=== PATIENT | female | born 1935 | race Caucasian/White ===

== ENCOUNTER → 2023-09-13 | Outpatient (CLI) | payer MEDICARE ==
[2023-09-13 20:30] LABS: Blood Urea Nitrogen 20.7 mg/dL (9.0-27.0); Carbon Dioxide 25.7 mmol/L (21.6-31.8); Chloride 101 mmol/L (96-109); Potassium 4.1 mmol/L (3.5-5.5); Sodium 140 mmol/L (135-145)
[2023-09-13 22:27] LABS: HCT 39.3 % (37.2-46.3); MCH 26.8 pg (27.0-32.0); MCHC 30.5 d/dL (32.0-37.0); MCV 87.7 FL (80.0-97.0); Mean Platelet Volume 11.2 FL (9.5-12.2); NRBC Per 100 WBC 0 X 10*3/uL (0.00-0.01); Platelet Count 295 X 10*3/uL (140-440); RBC 4.48 X 10*6/uL (4.10-5.20); RDW 15.9 % (11.5-14.5); WBC 9.63 X 10*3/uL (4.50-10.00)
== END | disposition home or self-care (01) ==
LOC: LABPAT 16:05
PROVIDERS: ATTEND Internal Medicine Interventional Cardiology
DX: Z01.812 Encounter for preprocedural laboratory examination (principal); I35.1 Nonrheumatic aortic (valve) insufficiency
CPT/HCPCS: 36415; 80051; 82565; 84520; 85027

== ENCOUNTER 2023-09-14 10:04 | Day surgery (SDC) | payer MEDICARE ==
[~2023-09-14 10:04] MED LIST: ALPRAZolam 0.25 MG TAB PO PRN; ALPRAZolam 0.5 MG TAB PO PRN; ASPIRIN 325 MG TAB PO STA; HEPARIN SODIUM,PORCINE (1 ML) 2,500 UNIT in SODIUM CHLORIDE 0.9% 250 ML IRRIGATION PRN; HEPARIN SODIUM,PORCINE 10,000 UNIT in SODIUM CHLORIDE 0.9% 1,000 ML IRRIGATION PRN; NITROGLYCERIN SL TABS 0.4 MG TAB SUBLINGUAL PRN; SODIUM CHLORIDE 0.9% 1,000 ML in EMPTY BAG 1 BAG IV SCH
[2023-09-14] MEDS ORDERED: SODIUM CHLORIDE 0.9% 1,000 ML IV ONE (10:13)
[2023-09-14 10:37] LABS: Basophils % (A) 0 %; Eosinophils # (A) 0.3 k/uL (0-0.7); Eosinophils % (A) 4 %; HCT 41.3 % (34.0-46.0); Hypochromasia Slight; Lymphocytes # (A) 2.2 k/uL (1.0-4.8); Lymphocytes % (A) 23 %; MCH 27.5 pg (25.0-35.0); MCHC 31.5 g/dL (31.0-37.0); MCV 87.4 fL (80.0-100.0); Mean Platelet Volume 8.4; Monocytes # (A) 0.5 k/uL (0-1.0); Monocytes % (A) 5 %; Neutrophils # (A) 6.2 k/uL (1.3-7.7); Neutrophils % (A) 66 %; Platelet Count 285 k/uL (150-450); RBC 4.73 m/uL (3.80-5.40); RDW 15.4 % (11.5-15.5); WBC 9.4 k/uL (3.8-10.6)
[2023-09-14 10:49] LABS: African American GFR (CKD) >90 (>60 ml/min/1.73 sqM); Anion Gap 13 mmol/L; Blood Urea Nitrogen 21 mg/dL (7-17); Calcium 9.2 mg/dL (8.4-10.2); Carbon Dioxide 24 mmol/L (22-30); Chloride 100 mmol/L (98-107); Glucose 105 mg/dL (74-99); Non-African American GFR(CKD) 88 (>60 ml/min/1.73 sqM); Sodium 137 mmol/L (137-145)
[2023-09-14 10:55] LABS: Potassium 4.5 mmol/L (3.5-5.1)
[2023-09-14] MEDS ORDERED: VERAPAMIL 2.5 MG/ML 2 ML AMP ONE (10:57)
[2023-09-14] MEDS ORDERED: fentaNYL (PF) 50 MCG/ML 2 ML AMP ONE (10:58)
[2023-09-14] MEDS ORDERED: HEPARIN SODIUM 1,000 UN/ML (10ML VL) ONE (10:58)
[2023-09-14] MEDS ORDERED: BENZOCAINE SPRAY 1 CAN TOPICAL ONE (11:00)
[2023-09-14] MEDS ORDERED: IV FLUID CONTINUATION 750 ML IV ONE (11:02)
[2023-09-14] MEDS ORDERED: MIDAZOLAM 2 MG/2 ML VIAL IVP ONE (11:05)
[2023-09-14] MEDS ORDERED: fentaNYL (PF) 50 MCG/ML 2 ML AMP IVP ONE (11:05)
--- NOTE | 2023-09-14 11:22 | P.PCN ---
Date of Procedure: 09/14/23 Operative Findings: TRANSESOPHAGEAL ECHOCARDIOGRAM TOOL ANALYST: NATHALIE MANRIQUEZ MD, RPVI INDICATION: Valvular heart disease SEDATION: Conscious sedation COMPLICATION: None LEVEL OF SEDATION Moderate with sedation length of 15 minutes PROCEDURE DESCRIPTION: After obtaining an informed consent, the patient was brought to transesophageal echocardiogram room. Pulse oximetry and heart monitors were attached to the patient. The patient throat was sprayed using lidocaine. The patient was turned into left lateral position. After that a bite guard was placed. After an appropriate conscious sedation was initiated, the transesophageal echocardiogram was advanced through a bite guard into the mid esophagus. A 2-D echocardiogram images, color Doppler images, continuous wave images, pulse-wave images, of various cardiac structure were performed. After that the transesophageal echocardiogram probe was advanced into the stomach and fixed to obtain transgastric view was. The probe was brought into the mid esophagus. Inter-atrial septum was interrogated using 2D images, color Doppler images, and then contrast study. After that transesophageal echocardiogram was withdrawn out and upon withdrawing the descending thoracic aorta all the way up to the arch was evaluated. FINDING: The left ventricular dimension and systolic function appeared to be within normal limits. The right ventricle appeared to be dilated. The left atrium is severely dilated. Left atrium appendage appeared to be intact. The aortic valve appears to be thickened and calcified was evidence of severe aortic stenosis with a peak systolic velocity of almost 4 m/s and peak gradient of 53 and mean gradient of 35 mmHg. There is severe aortic insufficiency was evidence of reversal flow in the descending aorta. There is moderate mitral regurgitation and the mitral valve leaflets are thickened and calcified. There is moderate tricuspid regurgitation seen as well. No evidence of pericardial effusion CONCLUSION: 1. Aortic sclerosis with evidence of severe aortic stenosis and severe aortic insufficiency. 2. Thickened mitral valve leaflets with moderate mitral regurgitation 3. Moderate tricuspid regurgitation 4. Normal LV systolic function 5.. Left atrial dilation 6. No evidence of pericardial effusion
[2023-09-14] MEDS ORDERED: LIDOCAINE 1% INJ 10MG/ML (5 ML VIAL-PF) SQ ONE (11:27)
[2023-09-14] MEDS: VERAPAMIL SYRINGE (5 MG/10 ML) INTRAARTER ONE ×2 (11:29→11:35)
[2023-09-14] MEDS ORDERED: HEPARIN SODIUM 1,000 UN/ML (10ML VL) IVP ONE (11:35)
[2023-09-14] MEDS ORDERED: NITROGLYCERIN SL TABS 0.4 MG TAB SUBLINGUAL ONE ×2 (11:44→11:45)
[2023-09-14] MEDS ORDERED: IOPAMIDOL-370 100ML BTL IVP ONE (11:54)
[2023-09-14] MEDS ORDERED: RX INFO: IV CONTRAST WAS GIVEN 1 EACH MISC MISCELLANE PRN (11:57)
[2023-09-14] MEDS ORDERED: SODIUM CHLORIDE 0.9% 1,000 ML IV SCH (12:00)
--- NOTE | 2023-09-14 12:05 | P.PCN ---
Date of Procedure: 09/14/23 Operative Findings: CARDIAC CATHETERIZATION PERFORMING PHYSICIAN: Jaciel Jones MD, RPVI PROCEDURE PERFORMED: 1. Selective right and left coronary angiogram 2. Ultrasound-guided access of the right radial artery INDICATION: Aortic valve disease with severe aortic stenosis and regurgitation COMPLICATION: None APPROACH: Right radial artery LEVEL OF SEDATION: Moderate with a sedation length of 40 minutes PROCEDURE DESCRIPTION: After obtaining an informed consent, the patient was brought to cardiac manager cath lab. Local anesthesia was performed using lidocaine subcutaneously. The right radial artery was cannulated using Seldinger technique, the guidewire passed easily, following that we advanced a 5-[place] sheath dilator assembly, the wire and dilator were removed and sheath was flushed. Following that, 2 mg of verapamil along with 4000 unit heparin were given. Selective right and left coronary angiogram using a 6-[place] JR4 and JL 3 catheters. Please note that the patient radial artery and right subclavian have extreme tortuosity and I have to use a long sheath. The procedure was completed there was no complication. SELECTIVE CORONARY ANGIOGRAM: The right coronary artery: Large caliber vessel and a dominant vessel and appeared to be angiographically normal. Left main: It is angiographically normal. Bifurcates into an LCx and LAD The left circumflex: Large caliber vessel nondominant vessel. The LCx is angiographically normal The left anterior descending artery: Large caliber vessel. The LAD has mild disease in the midportion by the bifurcation of a large diagonal branch CONCLUSION: 1. Mild disease involving the left anterior descending artery POSTPROCEDURE MANAGEMENT: Medical treatment for the CAD. The patient to be evaluated the valve clinic
[2023-09-14 15:45] VITALS: RESP 16
[2023-09-14 16:24] VITALS: BP 122/64; PULSE 84
== END 2023-09-14 16:32 | disposition home or self-care (01) ==
LOC: CATHCVL 10:04
PROVIDERS: ATTEND Internal Medicine Interventional Cardiology
DX: I08.1 Rheumatic disorders of both mitral and tricuspid valves (principal); I48.21 Permanent atrial fibrillation; I70.0 Atherosclerosis of aorta; I10 Essential (primary) hypertension; E78.5 Hyperlipidemia, unspecified; Z86.73 Personal history of transient ischemic attack (TIA), and cerebral infarction without residual deficits; Z79.899 Other long term (current) drug therapy
CPT/HCPCS: 93312; 93320; 93325; 93454; 76937; 80048; 85025; C1769 ×4; C1894 ×2; C1887; J2250; J2001; J3010; J1644; Q9967

== ENCOUNTER 2023-10-15 17:00 | Inpatient (IN) | payer MEDICARE ==
[2023-10-15] MEDS ORDERED: SODIUM CHLORIDE 0.9% 1,000 ML IV STA (17:29)
--- NOTE | 2023-10-15 17:37 | ED ---
Neuro HPI - General Chief Complaint: Neuro Symptoms/Deficit Stated Complaint: sob, confused, slurring words, unstable Time Seen by Provider: 10/15/23 17:29 Source: patient, family, RN notes reviewed, old records reviewed, Caregiver Mode of arrival: wheelchair Limitations: no limitations - History of Present Illness Is the patient presenting with stroke symptoms?: No Last Known Well Date: 10/15/23 Last Known Well Time: 10:00 -: hour(s) Initial Comments: This is a 87-year-old female here today. Patient coming in with slurred speech low oxygen levels elevated heart rate for son who is at bedside. He became concerned about the patient's persistent symptoms. Patient did complain of a fall earlier this week hitting her head and she did notice some slurred speech today which is now resolved. Patient aside from feeling weak just has no complaints no significant confusion. No headache chest pain shortness with abdominal pain currently Location: speech Place: home Severity: mild Quality: weak, numb, tingling Improves With: none Worsens With: none Context: sudden onset Associated Symptoms: confusion Treatments Prior to Arrival: none - Related Data Home Medications: Home Medications Medication Instructions Recorded Confirmed Atorvastatin [Lipitor] 40 mg PO HS 09/13/23 10/15/23 Ferrous Sulfate [Iron] 325 mg PO DAILY 09/13/23 10/15/23 Cholecalciferol [Vitamin D3 (25 50 mcg PO BID 10/15/23 10/15/23 Mcg = 1000 Iu)] Multivitamins, Thera [Multivitamin 1 tab PO BID 10/15/23 10/15/23 (formulary)] Vit C/E/Zn/Coppr/Lutein/Zeaxan 1 cap PO BID 10/15/23 10/15/23 [Preservision Areds 2 Softgel] Previous Rx's Medication Instructions Recorded Apixaban [Eliquis] 2.5 mg PO BID #60 tab 10/18/23 Aspirin 81 mg PO DAILY #30 tab 10/18/23 Metoprolol Succinate (ER) [Toprol 50 mg PO BID #60 tab 10/18/23 XL] Allergies/Adverse Reactions: Allergies Allergy/AdvReac Type Severity Reaction Status Date / Time No Known Allergies Allergy Verified 10/15/23 19:17 Review of Systems ROS Statement: Those systems with pertinent positive or pertinent negative responses have been documented in the HPI. ROS Other: All systems not noted in ROS Statement are negative. General Exam Limitations: no limitations General appearance: alert, in no apparent distress, anxious Head exam: Present: atraumatic, normocephalic, normal inspection Eye exam: Present: normal appearance, PERRL, EOMI. Absent: scleral icterus, conjunctival injection, periorbital swelling ENT exam: Present: normal exam, mucous membranes moist Neck exam: Present: normal inspection. Absent: tenderness, meningismus, lymphadenopathy Respiratory exam: Present: normal lung sounds bilaterally. Absent: respiratory distress, wheezes, rales, rhonchi, stridor Cardiovascular Exam: Present: regular rate, normal rhythm, normal heart sounds. Absent: systolic murmur, diastolic murmur, rubs, gallop, clicks GI/Abdominal exam: Present: soft, normal bowel sounds. Absent: distended, tenderness, guarding, rebound, rigid Extremities exam: Present: normal inspection, full ROM, normal capillary refill. Absent: tenderness, pedal edema, joint swelling, calf tenderness Back exam: Present: normal inspection Neurological exam: Present: alert, oriented X3, CN II-XII intact Psychiatric exam: Present: normal affect, normal mood Skin exam: Present: warm, dry, intact, normal color. Absent: rash Stroke MDM - Lab Data Result diagrams: 10/16/23 09:13 10/18/23 07:43 Lab Results 10/15/23 10/15/23 10/15/23 Range/Units 17:49 17:49 17:49 WBC 7.4 (3.8-10.6) k/uL RBC 4.66 (3.80-5.40) m/uL Hgb 12.3 (11.4-16.0) gm/dL Hct 38.3 (34.0-46.0) % MCV 82.2 D (80.0-100.0) fL MCH 26.3 (25.0-35.0) pg MCHC 32.0 (31.0-37.0) g/dL RDW 16.6 H (11.5-15.5) % Plt Count 345 (150-450) k/uL MPV 7.5 Neutrophils % (Manual) 71 % Lymphocytes % (Manual) 18 % Monocytes % (Manual) 11 % Neutrophils # (Manual) 5.25 (1.3-7.7) k/uL Lymphocytes # (Manual) 1.33 (1.0-4.8) k/uL Monocytes # (Manual) 0.81 (0-1.0) k/uL Nucleated RBCs 0 (0-0) /100 WBC Manual Slide Review Performed Hypochromasia Moderate Hypochromasia (manual) Present Anisocytosis Slight Anisocytosis (manual) Present PT 12.6 H (10.0-12.5) sec INR 1.2 H (<1.2) APTT 27.4 (22.0-30.0) sec Sodium 134 L (137-145) mmol/L Potassium 3.4 L (3.5-5.1) mmol/L Chloride 96 L (98-107) mmol/L Carbon Dioxide 25 (22-30) mmol/L Anion Gap 13 mmol/L BUN 21 H (7-17) mg/dL Creatinine 0.71 (0.52-1.04) mg/dL Est GFR (CKD-EPI)AfAm >90 (>60 ml/min/1.73 sqM) Est GFR (CKD-EPI)NonAf 78 (>60 ml/min/1.73 sqM) Glucose 114 H (74-99) mg/dL Lactic Ac Sepsis Rflx Plasma Lactic Acid Robert (0.7-2.0) mmol/L Calcium 9.1 (8.4-10.2) mg/dL Phosphorus 4.4 (2.5-4.5) mg/dL Magnesium 2.3 (1.6-2.3) mg/dL Total Bilirubin 0.8 (0.2-1.3) mg/dL AST 46 H (14-36) U/L ALT 27 (4-34) U/L Alkaline Phosphatase 142 H (38-126) U/L Troponin I (0.000-0.034) ng/mL NT-Pro-B Natriuret Pep 1560 pg/mL Total Protein 6.7 (6.3-8.2) g/dL Albumin 3.5 (3.5-5.0) g/dL 10/15/23 10/15/23 10/15/23 Range/Units 17:49 17:49 19:23 WBC (3.8-10.6) k/uL RBC (3.80-5.40) m/uL Hgb (11.4-16.0) gm/dL Hct (34.0-46.0) % MCV (80.0-100.0) fL MCH (25.0-35.0) pg MCHC (31.0-37.0) g/dL RDW (11.5-15.5) % Plt Count (150-450) k/uL MPV Neutrophils % (Manual) % Lymphocytes % (Manual) % Monocytes % (Manual) % Neutrophils # (Manual) (1.3-7.7) k/uL Lymphocytes # (Manual) (1.0-4.8) k/uL Monocytes # (Manual) (0-1.0) k/uL Nucleated RBCs (0-0) /100 WBC Manual Slide Review Hypochromasia Hypochromasia (manual) Anisocytosis Anisocytosis (manual) PT (10.0-12.5) sec INR (<1.2) APTT (22.0-30.0) sec Sodium (137-145) mmol/L Potassium (3.5-5.1) mmol/L Chloride (98-107) mmol/L Carbon Dioxide (22-30) mmol/L Anion Gap mmol/L BUN (7-17) mg/dL Creatinine (0.52-1.04) mg/dL Est GFR (CKD-EPI)AfAm (>60 ml/min/1.73 sqM) Est GFR (CKD-EPI)NonAf (>60 ml/min/1.73 sqM) Glucose (74-99) mg/dL Lactic Ac Sepsis Rflx Y Plasma Lactic Acid Robert 3.6 H* (0.7-2.0) mmol/L Calcium (8.4-10.2) mg/dL Phosphorus (2.5-4.5) mg/dL Magnesium (1.6-2.3) mg/dL Total Bilirubin (0.2-1.3) mg/dL AST (14-36) U/L ALT (4-34) U/L Alkaline Phosphatase (38-126) U/L Troponin I <0.012 (0.000-0.034) ng/mL NT-Pro-B Natriuret Pep pg/mL Total Protein (6.3-8.2) g/dL Albumin (3.5-5.0) g/dL - NIH Stroke Scale 1a. Level of Consciousness: (0) alert 1b. LOC Questions: (0) answers correctly 1c. LOC Commands: (0) performs tasks correctly 2. Best Gaze: (0) normal 3. Visual: (0) no visual loss 4. Facial Palsy: (0) normal symmetrical movement 5a. Motor Arm Left: (0) no drift 5b. Motor Arm Right: (0) no drift 6a. Motor Leg Left: (0) no drift 6b. Motor Leg Right: (0) no drift 7. Limb Ataxia: (0) absent 8. Sensory: (0) normal 9. Best Language: (0) no aphasia 10. Dysarthria: (0) normal 11. Extinction/Inattention: (0) no abnormality - Medical Decision Making 87 female to the emergency department with TIA type symptoms. No acute findings here in the emergency department slurred speech has resolved, patient also recent head injury all imaging is negative. Patient be admitted for neurological evaluation - Radiology Data Radiology results: report reviewed (CT brain C-spine chest x-rays negative for acute disease), image reviewed - EKG Data -: EKG Interpreted by Me (EKG is A. 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 07/06/23 fall - broke her rt shoulder History of Any Multi-Drug Resistant Organisms: None Reported Additional Past Surgical History / Comment(s): colonoscopy Past Anesthesia/Blood Transfusion Reactions: No Reported Reaction Past Psychological History: No Psychological Hx Reported Smoking Status: Never smoker - Past Family History Mother Family Medical History: Cancer Sister(s) Family Medical History: Cancer Course Vital Signs 10/15/23 10/15/23 10/16/23 17:09 20:00 04:00 Temperature 97.6 F 98.0 F Pulse Rate 116 H 108 H 92 Respiratory 28 H 22 16 Rate Blood Pressure 136/106 116/92 101/68 O2 Sat by Pulse 93 L 97 93 L Oximetry 10/16/23 10/16/23 10/16/23 07:00 08:00 09:00 Temperature 96.8 F L Pulse Rate 85 98 98 Respiratory 18 18 18 Rate Blood Pressure 105/55 109/79 94/53 O2 Sat by Pulse 95 95 96 Oximetry 10/16/23 10/16/23 10/16/23 10:00 11:00 13:25 Temperature Pulse Rate 80 80 81 Respiratory 18 18 16 Rate Blood Pressure 90/58 93/60 99/64 O2 Sat by Pulse 96 96 96 Oximetry 10/16/23 10/16/23 10/16/23 14:26 16:01 16:24 Temperature Pulse Rate 88 77 Respiratory 18 18 Rate Blood Pressure 97/57 85/52 88/55 O2 Sat by Pulse 94 L Oximetry 10/16/23 10/16/23 10/16/23 17:00 17:41 17:59 Temperature Pulse Rate 85 96 87 Respiratory 16 16 18 Rate Blood Pressure 98/59 117/67 118/62 O2 Sat by Pulse 94 L 94 L Oximetry - Reevaluation(s) Reevaluation #1: Medical records reviewed Reevaluation #2: Patient symptoms continue to improve Reevaluation #3: Patient informed results questions answered Reevaluation #4: Was pt. sent in by a medical professional or institution (, PA, MEDICAL RECEPTIONIST BILLER, urgent care, hospital, or longterm...) When possible be specific @ -no Did you speak to anyone other than the patient for history (EMS, parent, family, police, friend...)? What history was obtained from this source @ -no Did you review nursing and triage notes (agree or disagree)? Why? @ -agree Are old charts reviewed (outside hosp., previous admission, EMS record, old EKG, old radiological studies, urgent care reports/EKG's, longterm records)? Report findings @ -yes Differential Diagnosis (chest pain, altered mental status, abdominal pain women, abdominal pain men, vaginal bleeding, weakness, fever, dyspnea, syncope, headache, dizziness, GI bleed, back pain, seizure, CVA, palpatations, mental health, musculoskeletal)? @ -prior EKG interpreted by me (3pts min.). @ -yes X-rays interpreted by me (1pt min.). @ -yes CT interpreted by me (1pt min.). @ -no U/S interpreted by me (1pt. min.). @ -no What testing was considered but not performed or refused? (CT, X-rays, U/S, labs)? Why? @ -none What meds were considered but not given or refused? Why? @ -none Did you discuss the management of the patient with other professionals (professionals i.e. , PA, MEDICAL RECEPTIONIST BILLER, lab, RT, psych nurse, manager social responsibility, sr. payroll manager, teacher, postal delivery officer, upper caser)? Give summary @ -no Was smoking cessation discussed for >3mins.? @ -no Was critical care preformed (if so, how long)? @ -no Were there social determinants of health that impacted care today? How? (Homelessness, low income, unemployed, alcoholism, drug addiction, transportation, low edu. Level, literacy, decrease access to med. care, longterm, rehab)? @ -none Was there de-escalation of care discussed even if they declined (Discuss DNR or withdrawal of care, Hospice)? DNR status @ -no What co-morbidities impacted this encounter? (DM, HTN, Smoking, COPD, CAD, Cancer, CVA, ARF, Chemo, Hep., AIDS, mental health diagnosis, sleep apnea, morbid obesity)? @ -none Was patient admitted / discharged? Hospital course, mention meds given and route, prescriptions, significant lab abnormalities, going to OR and other per tinent info. @ - Undiagnosed new problem with uncertain prognosis? @ -no Drug Therapy requiring intensive monitoring for toxicity (Heparin, Nitro, Insulin, Cardizem)? @ -no Were any procedures done? @ -no Diagnosis/symptom? @ - Acute, or Chronic, or Acute on Chronic? @ -Acute Uncomplicated (without systemic symptoms) or Complicated (systemic symptoms)? @ -Complicated Side effects of treatment? @ -no Exacerbation, Progression, or Severe Exacerbation? @ -exacerbation Poses a threat to life or bodily function? How? (Chest pain, USA, AR, pneumonia, PE, COPD, DKA, ARF, appy, cholecystitis, CVA, Diverticulitis, Homicidal, Suicidal, threat to staff... and all critical care pts) @ -yes Reevaluation #5: Differential CVA Ischemic stroke, hemorrhagic stroke, brain tumor, atypical migraine, Wernicke's encephalopathy, seizure, multiple sclerosis, meningitis, encephalitis, hypoglycemia, Guillain-Justice, electrolytes disturbance, myasthenia gravis.... This is not meant to be an all-inclusive list Disposition Clinical Impression: Atrial fibrillation with rapid ventricular response, Transient cerebral ischemia, Weakness, Hypokalemia Disposition: ADMITTED IP TO THIS HOSP Condition: Stable Is patient prescribed a controlled substance at d/c from ED?: No Time of Disposition: 19:30
[2023-10-15 18:45] LABS: Anisocytosis Slight; HCT 38.3 % (34.0-46.0); HGB 12.3 gm/dL (11.4-16.0); Hypochromasia Moderate; MCH 26.3 pg (25.0-35.0); Mean Platelet Volume 7.5; Platelet Count 345 k/uL (150-450); RBC 4.66 m/uL (3.80-5.40); RDW 16.6 % (11.5-15.5); WBC 7.4 k/uL (3.8-10.6)
--- NOTE | 2023-10-15 18:47 | CT ---
EXAMINATION TYPE: CT brain cspine wo con CT DLP: 1314.1 mGycm, Automated exposure control for dose reduction was used. DATE OF EXAM: 10/15/2023 6:31 PM COMPARISON: None. CLINICAL INDICATION:Female, 87 years old with history of fall; pain after fall TECHNIQUE: Brain: Multiple axial CT images of the brain were obtained without IV contrast. Cspine: Axial CT images from the skull base to the inferior aspect of T2 we obtained without intraven ous contrast. Coronal and sagittal reformatted images were also reviewed. FINDINGS: Brain: Extra-axial spaces: No abnormal extra-axial fluid collections. Ventricular system: Within normal limits Cerebral parenchyma: No acute intraparenchymal hemorrhage or mass effect. The mishra-white junction is well differentiated. Cerebellum: Unremarkable. Mass effect: No evidence of midline shift. Intracranial vasculature: Atherosclerotic calcifications of the intracranial vessels. Soft tissues: Normal. Calvarium/osseous structures: No depressed skull fracture. Paranasal sinuses and mastoid air cells: Clear. Visualized orbits: Bilateral aphakia Cervical spine: Fracture: None. Osseous structures: Unremarkable Vertebral alignment: Within normal limits. Spinal canal/Neural Foramina: No evidence of significant spinal canal narrowing. No evidence for sign ificant neural foraminal stenosis. Neck soft tissues: Prevertebral soft tissues are within normal limits. Other: The airway is patent. Atherosclerosis of the carotid bifurcations. Low lung volumes with mosai c attenuation to the lung parenchyma IMPRESSION: 1. No acute intracranial process. 2. No evidence of cervical spine fracture. 3. Moderate multilevel degenerative disc disease. 4. Nonspecific white matter changes. 5. Generalized atrophy changes of the brain.
--- NOTE | 2023-10-15 18:53 | XR ---
EXAMINATION TYPE: XR chest 1V portable DATE OF EXAM: 10/15/2023 6:35 PM CLINICAL INDICATION:Female, 87 years old with history of sob; [facility] COMPARISON: None TECHNIQUE: XR chest 1V portable Frontal view of the chest. FINDINGS: Lungs/Pleura: There is no evidence of pleural effusion, focal consolidation, or pneumothorax. Pulmonary vascularity: Pulmonary vascular congestion. Heart/mediastinum: Cardiomediastinal silhouette is enlarged and stable. Musculoskeletal: No acute osseous pathology. Chronic appearing injury to the right shoulder. IMPRESSION: Cardiomegaly and mild pulmonary vascular congestion. Correlate with BNP for congestive heart failure.
[2023-10-15 18:59] LABS: ALT 27 U/L (4-34); AST 46 U/L (14-36); African American GFR (CKD) >90 (>60 ml/min/1.73 sqM); Albumin 3.5 g/dL (3.5-5.0); Alkaline Phosphatase 142 U/L (38-126); Anion Gap 13 mmol/L; Blood Urea Nitrogen 21 mg/dL (7-17); Calcium 9.1 mg/dL (8.4-10.2); Carbon Dioxide 25 mmol/L (22-30); Chloride 96 mmol/L (98-107); Glucose 114 mg/dL (74-99); Magnesium 2.3 mg/dL (1.6-2.3); Non-African American GFR(CKD) 78 (>60 ml/min/1.73 sqM); Phosphorus 4.4 mg/dL (2.5-4.5); Potassium 3.4 mmol/L (3.5-5.1); Sodium 134 mmol/L (137-145); Total Bilirubin 0.8 mg/dL (0.2-1.3); Total Protein 6.7 g/dL (6.3-8.2)
[2023-10-15 19:04] LABS: INR 1.2 (<1.2); Partial Thromboplastin Time 27.4 sec (22.0-30.0); Prothrombin Time 12.6 sec (10.0-12.5)
[2023-10-15 19:07] LABS: NT-Pro-B-Type Natriuretic Pept 1560 pg/mL
[2023-10-15 19:21] LABS: MCV 82.2 fL (80.0-100.0)
[2023-10-15] MEDS ORDERED: MORPHINE SULFATE 4 MG/ML SYRINGE IV PRN (19:24)
[2023-10-15] MEDS ORDERED: DILTIAZEM DRIP BOLUS FROM BAG 1 MG SOLN IV ONE (19:24)
[2023-10-15] MEDS ORDERED: POTASSIUM BICARBONATE/CIT AC 20 MEQ TABLET.EFF PO ONE (19:24)
[2023-10-15] MEDS ORDERED: NALOXONE 0.4 MG/ML 1 ML VIAL IV PRN (19:24)
[2023-10-15] MEDS ORDERED: ONDANSETRON 4 MG/2 ML VIAL IVP PRN (19:24)
[2023-10-15] MEDS ORDERED: DILTIAZEM 125 MG in SODIUM CHLORIDE 0.9% 100 ML IV SCH (19:30)
[2023-10-15 20:03] LABS: Anisocytosis (M) Present; Lymphocytes # (M) 1.33 k/uL (1.0-4.8); Monocytes # (M) 0.81 k/uL (0-1.0); Neutrophils # (M) 5.25 k/uL (1.3-7.7); Neutrophils % (M) 71 %; Nucleated Red Blood Cells 0 /100 WBC (0-0); Total Cells Counted 100
[2023-10-15 20:06] LABS: Hypochromasia (M) Present
[2023-10-15] MEDS: SODIUM CHLORIDE 0.9% 1,000 ML IV SCH (20:22)
--- NOTE | 2023-10-16 05:52 | P.HPIM ---
History of Present Illness H&P Date: 10/15/23 Chief Complaint: A. fib with RVR 87-year-old female with A. fib on Eliquis lives alone, hypertension, history of stroke Patient unable to provide any meaningful history which was obtained by reviewing medical records and discussing the case with the ED doctor Patient's son brought the patient to the hospital for evaluation due to concerns about her overall well-being she's been having multiple falls at home with a bruise on her forehead she seems to be weak hypoxic and having some slurred speech today however this has resolved by time of evaluation in the ED. Patient herself denies any complaints she reports that she lives alone she feels safe and she wants to go home she does admit to falling but at the same time insists on going home and not ending up in at any residential facility. She denies any chest pain trouble breathing denies any abdominal pain nausea vomiting or GI bleeding. Of note patient does not seem to be a reliable historian and tries to avoid mentioning any issues or concerns so that we don't keep her in the hospital. Patient's son was not available at time of my evaluation In the ED patient was found to be in A. fib with RVR she was initiated on Cardizem drip and admitted for further care review of systems Pertinent positives as noted in HPI. All other systems were reviewed and are negative on exam Constitutional: No acute distress, cooperative Eyes: Anicteric sclerae, moist conjunctiva, Pupils equal round reactive to light ENMT: NC/ecchymosis on the forehead no open wounds Oropharynx clear, no erythema, or exudates Neck: Supple, no masses, or JVD No carotid bruits No thyromegaly Lungs: Clear to auscultation Clear to percussion Normal respiratory effort, no accessory muscle use Cardiovascular: Heart irregular in rate and rhythm, No murmurs, gallops, or rubs No peripheral edema Abdominal: Soft Nontender, no guarding, rebound or rigidity Abdomen moving with respiration Normoactive bowel sounds No hepatomegaly, No splenomegaly No palpable mass No abdominal wall hernia noted Extremities: No digital cyanosis No clubbing Pedal pulses intact and symmetrical Radial pulses intact and symmetrical No calf tenderness Psychiatric: Alert and oriented to person, place and time Neuro Muscles Strength 4/5 in all 4 extremities Sensation to light touch grossly present throughout Cranial nerves II-XII grossly intact Lymphatics: no palpable cervical or supraclavicular lymph nodes Past Medical History Past Medical History: Atrial Fibrillation, CVA/TIA, Eye Disorder, Hyperl ipidemia, Hypertension, Memory Impairment, Osteoarthritis (OA) Additional Past Medical History / Comment(s): cva 2020- memory issues since, macular degeneration. 07/06/23 fall - broke her rt shoulder History of Any Multi-Drug Resistant Organisms: None Reported Additional Past Surgical History / Comment(s): colonoscopy Past Anesthesia/Blood Transfusion Reactions: No Reported Reaction Past Psychological History: No Psychological Hx Reported Smoking Status: Never smoker - Past Family History Mother Family Medical History: Cancer Sister(s) Family Medical History: Cancer Medications and Allergies Home Medications Medication Instructions Recorded Confirmed Type Apixaban [Eliquis] 5 mg PO BID 09/13/23 10/15/23 History Atorvastatin [Lipitor] 40 mg PO HS 09/13/23 10/15/23 History Ferrous Sulfate [Iron] 325 mg PO DAILY 09/13/23 10/15/23 History Metoprolol Succinate [Metoprolol 25 mg PO HS 09/13/23 10/15/23 History Succinate ER] Metoprolol Succinate [Metoprolol 50 mg PO DAILY 09/13/23 10/15/23 History Succinate ER] Cholecalciferol [Vitamin D3 (25 50 mcg PO BID 10/15/23 10/15/23 History Mcg = 1000 Iu)] Multivitamins, Thera [Multivitamin 1 tab PO BID 10/15/23 10/15/23 History (formulary)] Vit C/E/Zn/Coppr/Lutein/Zeaxan 1 cap PO BID 10/15/23 10/15/23 History [Preservision Areds 2 Softgel] Allergies Allergy/AdvReac Type Severity Reaction Status Date / Time No Known Allergies Allergy Verified 10/15/23 19:17 Physical Exam Vitals: Vital Signs Temp Pulse Resp BP Pulse Ox 10/15/23 20:00 98.0 F 108 H 22 116/92 97 10/15/23 17:09 97.6 F 116 H 28 H 136/106 93 L Intake and Output 10/15/23 10/15/23 10/15/23 06:59 14:59 22:59 Other: Weight 59.874 kg Results CBC & Chem 7: 10/15/23 17:49 10/15/23 17:49 Labs: Abnormal Lab Results - Last 24 Hours (Table) 10/15/23 10/15/23 10/15/23 Range/Units 17:49 17:49 17:49 RDW 16.6 H (11.5-15.5) % PT 12.6 H (10.0-12.5) sec INR 1.2 H (<1.2) Sodium 134 L (137-145) mmol/L Potassium 3.4 L (3.5-5.1) mmol/L Chloride 96 L (98-107) mmol/L BUN 21 H (7-17) mg/dL Glucose 114 H (74-99) mg/dL Plasma Lactic Acid Robert (0.7-2.0) mmol/L AST 46 H (14-36) U/L Alkaline Phosphatase 142 H (38-126) U/L 10/15/23 Range/Units 17:49 RDW (11.5-15.5) % PT (10.0-12.5) sec INR (<1.2) Sodium (137-145) mmol/L Potassium (3.5-5.1) mmol/L Chloride (98-107) mmol/L BUN (7-17) mg/dL Glucose (74-99) mg/dL Plasma Lactic Acid Roebrt 3.6 H* (0.7-2.0) mmol/L AST (14-36) U/L Alkaline Phosphatase (38-126) U/L Assessment and Plan Assessment: 87-year-old female with A. fib on Eliquis, she admits to recurrent falling at home she blames it on tripping and accidents she was presented today with palpitations and slurred speech I discussed the case with the ED doctor and accepted the admission for A. fib with RVR, recurrent falls while on Eliquis with anticipated length of stay more than 2 midnights A. fib with RVR Recurrent falls at home CT of the brain no acute intracranial pathology Blood work showing hemoglobin 12.3 white count 7.4 unremarkable Renal function BUN 21 creatinine 0.7 sodium 134 potassium 3.4 Magnesium 2.3 Troponins negative ProBNP 1560 Chest x-ray showed some pulmonary vascular congestion EKG showed A. fib with RVR Patient was initiated on Cardizem drip Continue with Eliquis PT/OT evaluation Cardiology consult Gentle IV fluid hydration. Lactic acidosis Continue with metoprolol home medication Continue with atorvastatin home medication CODE STATUS DO NOT RESUSCITATE DVT prophylaxis on Eliquis for A. fib
[2023-10-16] MEDS ORDERED: APIXABAN 5 MG TAB PO SCH (09:00)
[2023-10-16] MEDS ORDERED: METOPROLOL SUCCINATE (ER) 50 MG TAB.ER.24H PO SCH (09:00)
[2023-10-16] MEDS: SODIUM CHLORIDE 0.9% 1,000 ML IV SCH (09:22)
[2023-10-16] MEDS: APIXABAN 2.5 MG TABLET PO SCH ×2 (09:24→21:09)
[2023-10-16 09:50] LABS: Anisocytosis Slight; Basophils % (A) 0 %; Eosinophils # (A) 0.1 k/uL (0-0.7); Eosinophils % (A) 2 %; HCT 34.1 % (34.0-46.0); HGB 10.8 gm/dL (11.4-16.0); Hypochromasia Moderate; Lymphocytes # (A) 1.5 k/uL (1.0-4.8); Lymphocytes % (A) 20 %; MCH 26.3 pg (25.0-35.0); MCHC 31.6 g/dL (31.0-37.0); MCV 83.2 fL (80.0-100.0); Mean Platelet Volume 7.7; Monocytes # (A) 0.3 k/uL (0-1.0); Monocytes % (A) 4 %; Neutrophils # (A) 5.3 k/uL (1.3-7.7); Neutrophils % (A) 72 %; Platelet Count 345 k/uL (150-450); RDW 16.4 % (11.5-15.5); WBC 7.4 k/uL (3.8-10.6)
[2023-10-16 10:09] LABS: ALT 27 U/L (4-34); AST 46 U/L (14-36); African American GFR (CKD) 84 (>60 ml/min/1.73 sqM); Alkaline Phosphatase 118 U/L (38-126); Anion Gap 12 mmol/L; Blood Urea Nitrogen 23 mg/dL (7-17); Calcium 8.6 mg/dL (8.4-10.2); Carbon Dioxide 25 mmol/L (22-30); Chloride 97 mmol/L (98-107); Glucose 139 mg/dL (74-99); Magnesium 2.2 mg/dL (1.6-2.3); Non-African American GFR(CKD) 73 (>60 ml/min/1.73 sqM); Phosphorus 4.2 mg/dL (2.5-4.5); Potassium 3.5 mmol/L (3.5-5.1); Sodium 134 mmol/L (137-145); Total Bilirubin 0.7 mg/dL (0.2-1.3); Total Protein 5.9 g/dL (6.3-8.2)
--- NOTE | 2023-10-16 14:44 | P.PN ---
Subjective Progress Note Date: 10/16/23 Hospital course: Patient is a pleasant 87-year-old female with a past medical history of hypertension, hyperlipidemia, chronic atrial fibrillation on anticoagulation with Eliquis, CVA with memory deficits, and macular degeneration. Patient presented to the emergency department for evaluation secondary to concerns of recurrent falls in her home. Patient reportedly lives alone and has been having recurrent falls at home and was brought into the emergency department overnight by her son secondary to concerns of finding her with multiple bruises and a large bruise on her forehead. He reported she also seemed to be experiencing some slurred speech and weakness. Patient underwent full evaluation in the emergency department. Labs completed and reviewed. CBC showing no significant abnormalities. Coagulation profile showing PT of 12.6 and INR of 1.2. BMP revealing mild hyponatremia with sodium of 134, hypokalemia with potassium of 3.4, hypochloremia with chloride of 96, and mild prerenal azotemia with BUN of 21. Patient's glucose was 114. Initial lactate was 3.6. Magnesium normal findings at 2.3. Liver profile showing elevated AST of 46 and alkaline phosphatase of 142. Troponin negative at less than 0.012 proBNP was 1560. EKG showing atrial fibrillation with a rapid ventricular rate of [address] head and cervical spine were completed. CT head was negative for acute intercranial process showing nonspecific white matter changes and generalized atrophy changes of the brain. CT cervical spine negative for acute process showing no evidence of cervical spine fractures but did reveal moderate multilevel degenerative disc disease. Patient was admitted under our services with consultation to neurology for reports of slurred speech and weakness. Physical exam: Patient seen and fully evaluated at bedside this morning. Patient's daughter also sitting with her at bedside. Patient currently sitting up in chair and denies having any complaints or concerns at this time. Daughter expressing concerns about her mother's ability to ambulate independently and care for herself. Patient awaiting evaluation by physical and occupational therapy. Patient denies having any headache, lightheadedness, dizziness, chest pain, palpitations, shortness of breath, abdominal pain, nausea, vomiting, difficulties with urinary or bowel function, or experiencing any focal numbness/tingling/weakness in her extremities Vital signs reviewed and stable. General: Nontoxic, no distress and appears stated age. Derm: Skin warm and dry, normal coloration for ethnicity. Head: Atraumatic, normocephalic and symmetric. Bruise/area of ecchymosis to midline forehead Eyes: EOMs intact, no lid lag, and anicteric sclera Mouth: no lip lesions, mucus membranes moist Cardiovascular: Irregularly irregular, positive posterior tibial pulses bilaterally, and cap refill < 2 seconds. Lungs: Respirations even, regular, and unlabored on room air. Lungs CTA bilaterally, no rhonchi, no rales, no wheezing, and no accessory muscle usage. Abdominal: soft, nontender to palpation, no guarding, no appreciable organomegaly Ext: ROM intact. No gross muscle atrophy, scant lower extremity edema, no contractures Neuro: Speech clear, face symmetrical and CN II-XII grossly intact with no noted focal neuro deficits Psych: Alert and oriented to person, place, time, and situation. Appropriate and pleasant affect. Assessment and Plan of Care: Generalized weakness with transient episode of reported slurred speech, rule out TIA Atrial fibrillation with RVR Recurrent falls at home History of CVA with memory deficits Macular degeneration Hypertension Hyperlipidemia -Cardiology following, appreciate recommendations. -Neurology following, appreciate recommendations. -Telemetry monitoring -Trend troponins -Cardiac diet, NPO at midnight -Ventricular rate-controlled, Cardizem infusion discontinued. Patient to continue daily medication regimen with aspirin 81 mg daily, Eliquis 0.5 mg twice daily, atorvastatin 40 mg nightly, and metoprolol 50 mg daily and 25 mg nightly. -Echocardiogram completed and pending results Lactic acidosis, resolved after IV fluid hydration. Hypokalemia, resolved CODE STATUS: DO NOT RESUSCITATE/DO NOT INTUBATE DVT prophylaxis: Josue Anticipated discharge date: 24-[address]: 24-48 hours Patient was seen independently by Nurse Pracitioner. This document was prepared using [employer] dictation software. Please allow for errors in traffic observer, while rare they do occur. Jonny Dudley NP rendered care for this patient independently, reviewed the findings and plan as documented in the note above. I did not physically speak with or examine the patient on this date. Objective - Vital Signs Vital signs: Vital Signs Temp 96.8 F L 10/16/23 07:00 Pulse 98 10/16/23 09:00 Resp 18 10/16/23 09:00 BP 94/53 10/16/23 09:00 Pulse Ox 96 10/16/23 09:00 FiO2 Intake & Output 10/15/23 10/16/23 10/16/23 18:59 06:59 18:59 Weight 59.874 kg - Labs CBC & Chem 7: 10/16/23 09:13 10/16/23 09:13 Labs: Abnormal Lab Results - Last 24 Hours (Table) 10/15/23 10/15/23 10/15/23 Range/Units 17:49 17:49 17:49 RDW 16.6 H (11.5-15.5) % PT 12.6 H (10.0-12.5) sec INR 1.2 H (<1.2) Sodium 134 L (137-145) mmol/L Potassium 3.4 L (3.5-5.1) mmol/L Chloride 96 L (98-107) mmol/L BUN 21 H (7-17) mg/dL Glucose 114 H (74-99) mg/dL Plasma Lactic Acid Robert (0.7-2.0) mmol/L AST 46 H (14-36) U/L Alkaline Phosphatase 142 H (38-126) U/L 10/15/23 Range/Units 17:49 RDW (11.5-15.5) % PT (10.0-12.5) sec INR (<1.2) Sodium (137-145) mmol/L Potassium (3.5-5.1) mmol/L Chloride (98-107) mmol/L BUN (7-17) mg/dL Glucose (74-99) mg/dL Plasma Lactic Acid Robert 3.6 H* (0.7-2.0) mmol/L AST (14-36) U/L Alkaline Phosphatase (38-126) U/L
[2023-10-16] MEDS: ASPIRIN 81 MG PO SCH (16:03)
[2023-10-16] MEDS ORDERED: SODIUM CHLORIDE 0.9% 500 ML 500 ML IV ONE (16:44)
--- NOTE | 2023-10-16 19:35 | P.CRDCN ---
History of Present Illness Consult date: 10/16/23 History of present illness: HISTORY OF PRESENTING ILLNESS 88-year-old female with history of atrial fibrillation on Eliquis, lives alone, hypertension, history of stroke. Patient was brought to the hospital by son wasn't concerns of increased fall and slurred speech. On admission. She was found to be negative ablation with rapid ventricular response. She was started on IV Cardizem drip On admission her ECG showed atrial fibrillation with heart rate of 107. Hemog lobin 12.3, INR 1.2, sodium 134, potassium 3.4, creatinine 0.7, lactate 3.6 Her troponin was negative, BNP was 1500 Chest x-ray did not show significant pulmonary congestion REVIEW OF SYSTEMS 14 point review of system is negative except what is mentioned above in HPI. PHYSICAL EXAMINATION Vital signs reviewed. Head: Normocephalic. Eyes: Sclerae nonicteric. Neck: Brisk carotid upstroke, no jugular venous distention. Lungs: Clear to auscultation. Heart: Irregularly irregular, S1-S2, no S3, no murmur or rub. Abdomen: Soft nontender, positive bowel sounds no organomegaly. Extremities: No edema, intact distal pulses. Neuro: Confused and obtunded ASSESSMENT A. fib ablation with RVR Recurrent falls Metabolic encephalopathy PLAN Continue Eliquis Continue Cardizem drip Continue metoprolol succinate Continue atorvastatin Obtain an echocardiogram Past Medical History Past Medical History: Atrial Fibrillation, CVA/TIA, Eye Disorder, Hyperlipidemia, Hypertension, Memory Impairment, Osteoarthritis (OA) Additional Past Medical History / Comment(s): cva 2020- memory issues since, macular degeneration. 07/06/23 fall - broke her rt shoulder History of Any Multi-Drug Resistant Organisms: None Reported Additional Past Surgical History / Comment(s): colonoscopy Past Anesthesia/Blood Transfusion Reactions: No Reported Reaction Past Psychological History: No Psychological Hx Reported Smoking Status: Never smoker Past Alcohol Use History: None Reported Past Drug Use History: None Reported - Past Family History Mother Family Medical History: Cancer Sister(s) Family Medical History: Cancer Medications and Allergies Home Medications Medication Instructions Recorded Confirmed Type Apixaban [Eliquis] 5 mg PO BID 09/13/23 10/15/23 History Atorvastatin [Lipitor] 40 mg PO HS 09/13/23 10/15/23 History Ferrous Sulfate [Iron] 325 mg PO DAILY 09/13/23 10/15/23 History Metoprolol Succinate [Metoprolol 25 mg PO HS 09/13/23 10/15/23 History Succinate ER] Metoprolol Succinate [Metoprolol 50 mg PO DAILY 09/13/23 10/15/23 History Succinate ER] Cholecalciferol [Vitamin D3 (25 50 mcg PO BID 10/15/23 10/15/23 History Mcg = 1000 Iu)] Multivitamins, Thera [Multivitamin 1 tab PO BID 10/15/23 10/15/23 History (formulary)] Vit C/E/Zn/Coppr/Lutein/Zeaxan 1 cap PO BID 10/15/23 10/15/23 History [Preservision Areds 2 Softgel] Allergies Allergy/AdvReac Type Severity Reaction Status Date / Time No Known Allergies Allergy Verified 10/15/23 19:17 Physical Exam Vitals: Vital Signs Temp Pulse Pulse Resp BP BP Pulse Ox 10/16/23 19:00 97 10/16/23 18:54 87 L 10/16/23 18:35 98.0 F 95 18 112/64 97 10/16/23 17:59 87 18 118/62 10/16/23 17:41 96 16 117/67 94 L 10/16/23 17:00 85 16 98/59 94 L 10/16/23 16:24 88/55 10/16/23 16:01 77 18 85/52 94 L 10/16/23 14:26 88 18 97/57 10/16/23 13:25 81 16 99/64 96 10/16/23 11:00 80 18 93/60 96 10/16/23 10:00 80 18 90/58 96 10/16/23 09:00 98 18 94/53 96 10/16/23 08:00 98 18 109/79 95 10/16/23 07:00 96.8 F L 85 18 105/55 95 10/16/23 04:00 92 16 101/68 93 L 10/15/23 20:00 98.0 F 108 H 22 116/92 97 Intake and Output 10/16/23 10/16/23 10/16/23 06:59 14:59 22:59 Intake Total 118 Balance 118 Intake: Oral 118 Other: Weight 59.874 kg Results 10/16/23 09:13 10/16/23 09:13 Cardiac Enzymes 10/16/23 Range/Units 09:13 AST 46 H (14-36) U/L CBC 10/16/23 Range/Units 09:13 WBC 7.4 (3.8-10.6) k/uL RBC 4.10 (3.80-5.40) m/uL Hgb 10.8 L (11.4-16.0) gm/dL Hct 34.1 (34.0-46.0) % Plt Count 345 (150-450) k/uL Comprehensive Metabolic Panel 10/16/23 Range/Units 09:13 Sodium 134 L (137-145) mmol/L Potassium 3.5 (3.5-5.1) mmol/L Chloride 97 L (98-107) mmol/L Carbon Dioxide 25 (22-30) mmol/L BUN 23 H (7-17) mg/dL Creatinine 0.75 (0.52-1.04) mg/dL Glucose 139 H (74-99) mg/dL Calcium 8.6 (8.4-10.2) mg/dL AST 46 H (14-36) U/L ALT 27 (4-34) U/L Alkaline Phosphatase 118 (38-126) U/L Total Protein 5.9 L (6.3-8.2) g/dL Albumin 3.0 L (3.5-5.0) g/dL Current Medications Generic Name Dose Route Start Last Admin Trade Name Freq PRN Reason Stop Dose Admin Apixaban 2.5 mg 10/16/23 09:00 10/16/23 09:24 Apixaban 2.5 Mg Tablet PO 2.5 mg BID ELOISA Administration Protocol Aspirin 81 mg 10/16/23 14:45 10/16/23 16:03 Aspirin 81 Mg PO 81 mg DAILY ELOISA Administration Atorvastatin Calcium 40 mg 10/16/23 21:00 Atorvastatin 40 Mg Tab PO HS ELOISA Ferrous Sulfate 325 mg 10/17/23 09:00 Ferrous Sulfate 325 Mg Tab PO DAILY [facility] Metoprolol Succinate 25 mg 10/16/23 21:00 Metoprolol Succinate (Er) 25 Mg Tab.Er.24h PO HS [facility] Metoprolol Succinate 50 mg 10/16/23 09:00 10/16/23 09:24 Metoprolol Succinate (Er) 50 Mg Tab.Er.24h PO 50 mg DAILY ELOISA Administration Morphine Sulfate 4 mg 10/15/23 19:24 Morphine Sulfate 4 Mg/Ml Syringe IV Q4HR PRN Severe Pain (Scale 7 to 10) Naloxone HCl 0.2 mg 10/15/23 19:24 Naloxone 0.4 Mg/Ml 1 Ml Vial IV Q2M PRN Opioid Reversal Ondansetron HCl 4 mg 10/15/23 19:24 Ondansetron 4 Mg/2 Ml Vial IVP Q8HR PRN Nausea And Vomiting Intake and Output 10/16/23 10/16/23 10/16/23 06:59 14:59 22:59 Intake Total 118 Balance 118 Intake: Oral 118 Other: Weight 59.874 kg Patient Weight 10/17/23 06:59 Weight 59.874 kg 10/16/23 09:13 10/16/23 09:13
[2023-10-16] MEDS ORDERED: METOPROLOL SUCCINATE (ER) 25 MG TAB.ER.24H PO SCH (21:00)
[2023-10-16] MEDS: ATORVASTATIN 40 MG TAB PO SCH (21:09)
[2023-10-17] MEDS: FUROSEMIDE 10 MG/ML 4 ML VIAL IV SCH ×2 (09:00→20:27)
[2023-10-17] MEDS: METOPROLOL SUCCINATE (ER) 50 MG TAB.ER.24H PO SCH ×2 (09:00→20:26)
[2023-10-17] MEDS: APIXABAN 2.5 MG TABLET PO SCH ×2 (09:00→20:26)
[2023-10-17] MEDS: ASPIRIN 81 MG PO SCH (09:00)
[2023-10-17] MEDS: FERROUS SULFATE 325 MG TAB PO SCH (09:01)
--- NOTE | 2023-10-17 10:08 | CA ---
Transthoracic Echo Report Name: Ann Guardado Age: 87 Gender: F : 1935 Exam Date: 10/16/2023 11:40 Exam Location: [facility] Ht (in): 64 Wt (lb): 132 Ordering Physician: Maurice Padilla MD ([id number]) Attending/Referring Phys: School Based Therapist Tiffanie Alvarado [facility] Procedure CPT: Indications: afib falls, check for aortic stenosis Cardiac Hx: Technical Quality: Fair Contrast 1: Total Dose (mL): Contrast 2: Total Dose (mL): MEASUREMENTS (Male / Female) Normal Values 2D ECHO LV Diastolic Diameter PLAX 3.2 cm 4.2 - 5.9 / 3.9 - 5.3 cm LV Systolic Diameter PLAX 2.4 cm IVS Diastolic Thickness 1.2 cm 0.6 - 1.0 / 0.6 - 0.9 cm LVPW Diastolic Thickness 1.2 cm 0.6 - 1.0 / 0.6 - 0.9 cm LV Relative Wall Thickness 0.7 LVOT Diameter 1.9 cm Ascending Aorta Diameter 3.4 cm M-MODE Aortic Root Diameter MM 2.0 cm LA Systolic Diameter MM 4.9 cm LA Ao Ratio MM 2.4 AV Cusp Separation MM 0.9 cm DOPPLER AV Peak Velocity 319.4 cm/s AV Peak Gradient 40.8 mmHg AV Mean Velocity 257.6 cm/s AV Mean Gradient 28.7 mmHg AV Velocity Time Integral 68.9 cm AI Peak Velocity 391.4 cm/s AI Peak Gradient 61.3 mmHg AI Pressure Half Time 441.2 ms LVOT Peak Velocity 96.9 cm/s LVOT Peak Gradient 3.8 mmHg LVOT Velocity Time Integral 21.0 cm LVOT Stroke Volume 59.7 cm??? LVOT Stroke Volume Index 36.4 ml/m??? LVOT Cardiac Index 3222.4 cm???/min???m??? AV Area Cont Eq vti 0.9 cm??? AV Area Cont Eq pk 0.9 cm??? Mitral E Point Velocity 105.6 cm/s MV Deceleration Time 229.2 ms LV E' Lateral Velocity 6.3 cm/s Mitral E to LV E' Lateral Ratio 16.7 LV E' Septal Velocity 5.1 cm/s Mitral E to LV E' Septal Ratio 20.9 TR Peak Velocity 279.9 cm/s TR Peak Gradient 31.3 mmHg Right Atrial Pressure 8.0 mmHg Pulmonary Artery Systolic Pressu 39.3 mmHg Right Ventricular Systolic Press 39.3 mmHg FINDINGS Left Ventricle Mildly increased left ventricular wall thickness. Small left ventricular cavity. Normal left ventricular systolic function with no obvious regional wall motion abnormalities. Left ventricular ejection fraction is estimated at 55- 60%. Right Ventricle Right ventricle at upper limits of normal. Mild pulmonary hypertension. Right Atrium Moderate right atrial dilatation. Left Atrium Severe left atrial dilatation. Mitral Valve Mitral valve thickened. Mild mitral annular calcification. [id number] mitral regurgitation. Aortic Valve Aortic valve not well visualized. Diffuse thickening of the aortic valve cusps with reduced excursion. Moderate aortic regurgitation. Moderate aortic stenosis with a peak gradient of 40.80 mmHg and a mean gradient of 28.71 mmHg. Tricuspid Valve Structurally normal tricuspid valve. M oderate tricuspid regurgitation. Pulmonic Valve Pulmonic valve not well visualized. Pericardium Minimal pericardial effusion (normal variant). Aorta Normal size aortic root and proximal ascending aorta. CONCLUSIONS Normal LV function Moderate aortic stenosis Mild to moderate mitral regurgitation Previewed by: Dr. Kyle Villar MD (Electronically Signed) Final Date: 17 October 2023 10:07
--- NOTE | 2023-10-17 10:21 | P.CNNES ---
History of Present Illness Consult date: 10/16/23 Requesting physician: Rehan Blackburn Reason for Consult: TIA History of Present Illness: Patient is a 87-year-old right-handed female came to the hospital yesterday at 5 PM, referred by primary physician for evaluation. Patient states that yesterday she had a routine appointment with her primary physician, who recommended her to go to the hospital. Patient states that on the , 10/11/2023, while taking the shower, she slipped and fell backwards in the bathroom, but did not hit herself hard. Patient says that she lives alone. Patient did not pass out. Patient's son later noticed that she was having slurred speech yesterday, therefore brought her to the hospital. 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 Denies any focal numbness, tingling or weakness. No pain anywhere, no facial droop. Patient says that she had history of a TIA 3 years ago in August 2020, in which she had difficulty with speaking on the phone. The episode did not last too long, with no residual deficits. Patient states that she suffered from a fall in June 2023 when she was standing on the porch, where there was one step, she missed the step during conversation, fell forwards, hitting forehead on the brake. She broke her right shoulder. Vital signs arrival blood pressure 136/106, pulse rate 116, temperature 97.6. Blood test shows normal CBC, INR 1.2, sodium 134 potassium 3.4, normal renal functions, AST is mildly elevated 46, normal ALT. Troponin negative. EKG shows atrial fibrillation with rapid ventricular response. Chest x-ray showed cardiomegaly and mild pulmonary vascular congestion. Correlate with BNP for congestive heart failure. CT head showed no acute intracranial process. Nonspecific white matter changes, generalized atrophy changes of the brain. I personally reviewed CT head, given the findings. CT of the cervical spine showed no evidence of cervical spine fracture, moderate multilevel degenerative disc disease. Patient's home medications include Lipitor 40 mg, metoprolol, iron, Eliquis, multivitamin, vitamin D. I spoke to patient's son on the phone, who mentioned and concurred that patient did suffer from a fall as mentioned above on . He said that she was very short of breath, therefore he brought her to the hospital. He admitted that patient's speech was "off", and felt there was some slurred speech but no other strokelike symptoms. Review of Systems Constitutional: Denies chills, Denies fever Eyes: bilateral loss of vision (Macular degeneration), denies blurred vision, denies diplopia, denies pain Ears: bilateral: decreased hearing, deny: ear discharge Ears, nose, mouth and throat: Denies headache, Denies sore throat Cardiovascular: Reports dyspnea on exertion, Reports shortness of breath, Denies chest pain Respiratory: Reports cough with sputum, Denies excessive sputum Gastrointestinal: Denies abdominal pain, Denies diarrhea, Denies nausea, Denies vomiting Genitourinary: Denies dysuria, Denies hematuria, Denies urge incontinence, Denies urgency Musculoskeletal: Reports low back pain, Denies myalgias, Denies neck pain Integumentary: Denies pruritus, Denies rash Neurological: Reports as per HPI Psychiatric: Denies anxiety, Denies depression Endocrine: Denies fatigue, Denies weight change Hematologic/Lymphatic: Denies easy bleeding, Denies easy bruising Past Medical History Past Medical History: Atrial Fibrillation, CVA/TIA, Eye Disorder, Hyperlipid emia, Hypertension, Memory Impairment, Osteoarthritis (OA) Additional Past Medical History / Comment(s): cva 2020- memory issues since, macular degeneration. 07/06/23 fall - broke her rt shoulder History of Any Multi-Drug Resistant Organisms: None Reported Additional Past Surgical History / Comment(s): colonoscopy Past Anesthesia/Blood Transfusion Reactions: No Reported Reaction Past Psychological History: No Psychological Hx Reported Smoking Status: Never smoker - Past Family History Mother Family Medical History: Cancer Sister(s) Family Medical History: Cancer Medications and Allergies Home Medications Medication Instructions Recorded Confirmed Type Apixaban [Eliquis] 5 mg PO BID 09/13/23 10/15/23 History Atorvastatin [Lipitor] 40 mg PO HS 09/13/23 10/15/23 History Ferrous Sulfate [Iron] 325 mg PO DAILY 09/13/23 10/15/23 History Metoprolol Succinate [Metoprolol 25 mg PO HS 09/13/23 10/15/23 History Succinate ER] Metoprolol Succinate [Metoprolol 50 mg PO DAILY 09/13/23 10/15/23 History Succinate ER] Cholecalciferol [Vitamin D3 (25 50 mcg PO BID 10/15/23 10/15/23 History Mcg = 1000 Iu)] Multivitamins, Thera [Multivitamin 1 tab PO BID 10/15/23 10/15/23 History (formulary)] Vit C/E/Zn/Coppr/Lutein/Zeaxan 1 cap PO BID 10/15/23 10/15/23 History [Preservision Areds 2 Softgel] Allergies Allergy/AdvReac Type Severity Reaction Status Date / Time No Known Allergies Allergy Verified 10/15/23 19:17 Physical Examination - Vital Signs Vital Signs: Vital Signs Temp Pulse Resp BP Pulse Ox 10/16/23 16:24 88/55 10/16/23 16:01 77 18 85/52 94 L 10/16/23 14:26 88 18 97/57 10/16/23 13:25 81 16 99/64 96 10/16/23 11:00 80 18 93/60 96 10/16/23 10:00 80 18 90/58 96 10/16/23 09:00 98 18 94/53 96 10/16/23 08:00 98 18 109/79 95 10/16/23 07:00 96.8 F L 85 18 105/55 95 10/16/23 04:00 92 16 101/68 93 L 10/15/23 20:00 98.0 F 108 H 22 116/92 97 10/15/23 17:09 97.6 F 116 H 28 H 136/106 93 L Patient is an elderly female, very pleasant, who appears slightly short of breath. Patient is alert awake oriented to time place and person. Patient at first said it was September 2030, but then said was September 2023. She knows she is in [facility]. Patient can name and repeat very well. No aphasia, although patient has mild slurring noted. Attention, concentration and fund of knowledge is adequate. On cranial nerve examination, pupils are equal, round and reacting to light, visual ivory are full on confrontation, with no neglect on double simultaneous stimulation. Extraocular muscles are intact with no nystagmus. Face is symmetric, tongue protrudes to the midline. Palatal elevation and sensation normal, hearing is decreased moderately and shoulder shrug normal, facial sensation normal. On muscle strength testing, there is no pronator drift and the strength is normal in arms and legs distally and proximally, except right deltoid which is weak from previous fracture. Deep tendon reflexes are symmetric and trace all over and plantars are withdrawal bilaterally. Sensory to touch is equal with no neglect on double simultaneous stimulation. Patient complains of numbness in the lower limbs knees down, feels like tight so cks on, related to her history of peripheral neuropathy. Cerebellar function showed no ataxia for [id number] testing. No dysdiadochokinesia. No ataxia for [id number] testing on either side. Tone and bulk of muscles normal. Gait deferred.. On general examination, there is no carotid bruit or murmur, S1-S2 audible. Chest is clear on consultation. Abdomen is soft nontender. No organomegaly, bowel sounds present. Peripheral pulses are present. There is mild peripheral edema. Results - Laboratory Findings CBC and BMP: 10/16/23 09:13 10/16/23 09:13 Abnormal Lab Findings: Abnormal Labs 10/15/23 10/15/23 10/15/23 17:49 17:49 17:49 Hgb RDW 16.6 H PT 12.6 H INR 1.2 H Sodium 134 L Potassium 3.4 L Chloride 96 L BUN 21 H Glucose 114 H Plasma Lactic Acid Robert AST 46 H Alkaline Phosphatase 142 H Total Protein Albumin 10/15/23 10/16/23 10/16/23 17:49 09:13 09:13 Hgb 10.8 L RDW 16.4 H PT INR Sodium 134 L Potassium Chloride 97 L BUN 23 H Glucose 139 H Plasma Lactic Acid Robert 3.6 H* AST 46 H Alkaline Phosphatase Total Protein 5.9 L Albumin 3.0 L Assessment and Plan Assessment: * Recent history of fall 10/11/2023 (3 days prior to arrival) due to slipping in the bathroom * Atrial fibrillation with rapid ventricular rate, currently on Eliquis * History of TIA in August 2020, with no residual deficits. * Hypertension * Hyperlipidemia * Legal blindness due to macular degeneration * Peripheral neuropathy Plan: * Patient was brought to the hospital because of difficulty breathing and shortness of breath. Suspect from cardiopulmonary condition. Cardiology on board. * Patient's son believes that she has slight slurred speech, but no other focal deficits. Her examination is nonfocal. CT head showed no new process now CVA, no bleed. * 2-D echo * Carotid Doppler, rule out stenosis * Fasting a.m. lipid panel. Continue Lipitor 40 mg daily. * Hemoglobin A1c * B12, folate * Optimize control of blood pressure * Continue Eliquis dozing as per IM/cardiology. It appears her dose has been changed from 5 mg twice a day to 2.5 mg twice a day and also started on aspirin 81 mg. * Neuro checks. * Telemetry monitoring rule out any arrhythmia * PT, OT, speech therapy * DVT prophylaxis: On Eliquis * Neurology will continue to follow. Thank you for the consult.
--- NOTE | 2023-10-17 13:07 | US ---
EXAMINATION TYPE: US carotid duplex BILAT DATE OF EXAM: 10/17/2023 COMPARISON: NONE CLINICAL INDICATION: Female, 87 years old with history of Slurred speech; Slurred speech TECHNIQUE: Carotid duplex ultrasound examination. Indirect Doppler criteria was utilized. FINDINGS: EXAM MEASUREMENTS: RIGHT: Peak Systolic Velocity (PSV) cm/sec ----- Right CCA: 52.4 ----- Right ICA: 66.1 ----- Right ECA: 98.7 ICA/CCA ratio: 1.3 RIGHT: End Diastole cm/sec ----- Right CCA: 7.2 ----- Right ICA: 15.1 ----- Right ECA: 0.0 LEFT: Peak Systolic Velocity (PSV) cm/sec ----- Left CCA: 62.9 ----- Left ICA: 78.6 ----- Left ECA: 78.6 ICA/CCA ratio: 1.2 LEFT: End Diastole cm/sec ----- Left CCA: 8.3 ----- Left ICA: 27.2 ----- Left ECA: 0.0 VERTEBRALS (direction of flow): Right Vertebral: Antegrade Left Vertebral: Antegrade Rhythm: Arrhythmia COPPER ETCHER NOTES: No evidence of significant stenosis bilaterally IMPRESSION: 1. Less than 50% stenosis of the bilateral carotid bifurcations. 2. Irregular spectral arterial waveforms correlate for arrhythmia with EKG. Criteria for Assigning % of Stenosis / Diameter reduction (Estimation based on the indirect measurements of the internal carotid artery velocities (ICA PSV). 1. Normal (no stenosis)=ICA PSV < 125 cm/s: ratio < 2.0: ICA EDV<40 cm/s. 2. Less than 50% stenosis=ICA PSV < 125 cm/s: ratio < 2.0: ICA EDV<40 cm/s. 3. 50 to 69% stenosis=ICA PSV of 125 to 230 cm/s: ration 2.0 ? 4.0: ICA EDV 40-100 cm/s. 4. Greater than 70% stenosis to near occlusion= ICA PSV > 230 cm/s: ratio > 4.0: ICA EDV > 100 cm/s. 5. Near occlusion= ICA PSV velocities may be low or undetectable: variable ratio and ICA EDV. 6. Total occlusion=unable to detect flow.
--- NOTE | 2023-10-17 13:54 | P.PN ---
Subjective HISTORY OF PRESENT ILLNESS: October 16 2023 88-year-old female with history of atrial fibrillation on Eliquis, lives alone, hypertension, history of stroke. Patient was brought to the hospital by son wasn't concerns of increased fall and slurred speech. On admission. She was found to be negative ablation with rapid ventricular response. She was started on IV Cardizem drip On admission her ECG showed atrial fibrillation with heart rate of 107. Hemoglobin 12.3, INR 1.2, sodium 134, potassium 3.4, creatinine 0.7, lactate 3.6 Her troponin was negative, BNP was 1500 Chest x-ray did not show significant pulmonary congestion October 17 2023 patient examined this morning at the bedside. Patient's mentation has improved compared to yesterday. Patient currently denies chest pain or pressure. She reports mild shortness of breath. Telemetry reveals atrial fibrillation with a heart rate around 90. Echocardiogram completed revealing ejection fraction 55- 60%, moderate aortic stenosis, mild to moderate mitral regurgitation PHYSICAL EXAM: VITAL SIGNS: Reviewed. GENERAL: Well-developed in no acute distress. NECK: Supple. No JVD or thyromegaly LUNGS: Respirations even and unlabored. Lungs diminished with a few crackles. HEART: Irregular rate and rhythm. S1 and S2 heard. EXTREMITIES: Normal range of motion. No clubbing or cyanosis. Peripheral pulses intact. Trace bilateral lower extremity edema ASSESSMENT: Generalized weakness Paroxysmal atrial fibrillation with RVR Acute heart failure with preserved ejection fraction Mild coronary artery disease Moderate to severe aortic stenosis Moderate aortic regurgitation Hyperlipidemia PLAN: Continue oral anticoagulation with Eliquis Change metoprolol succinate to 50 mg twice a day for optimal heart rate control Continue telemetry monitoring Begin IV Lasix 40 mg every 12 hours Daily weights, accurate I&O, monitor kidney function Further recommendations pending patient's course Nurse practitioner note has been reviewed by physician. Signing provider agrees with the documented findings, assessment, and plan of care. Objective - Vital Signs Vital signs: Vital Signs Temp 98 F 10/17/23 08:00 Pulse 93 10/17/23 12:00 Resp 16 10/17/23 12:00 BP 109/59 10/17/23 12:00 Pulse Ox 95 10/17/23 12:00 FiO2 Intake & Output 10/16/23 10/17/23 10/17/23 18:59 06:59 18:59 Intake Total 118 Balance 118 Weight 59.874 kg Intake: Oral 118 Other: Voiding Method Toilet Toilet # Voids 1 1 # Bowel Movements 1 1 - Labs CBC & Chem 7: 10/16/23 09:13 10/16/23 09:13
--- NOTE | 2023-10-17 16:25 | P.PN ---
Subjective Progress Note Date: 10/17/23 (dealeyed charting seen at 1115) Patient is a an 87-year-old female with hypertension, dyslipidemia, chronic A. fib anticoagulated with Eliquis, CVA with memory deficits, and macular degen eration who presented to the ER due to recurrent falls at home and weakness. In the emergency department she underwent an extensive evaluation. Initial laboratory analysis was remarkable for sodium 134, potassium 3.4, lactic acid 3.6. EKG demonstrated atrial fibrillation with rapid ventricular rate of 107. CT head and cervical spine was negative for any acute intracranial process but did show generalized atrophy as well as moderate multilevel degenerative disc changes. Patient was subsequently admitted. Cardiology and neurology were consulted. Neurology recommended a.m. fasting lipid profile checking hemoglobin A1c, B12, folate. Cardiology recommended Cardizem drip as well as metoprolol. Patient seen and examined at bedside. She still feels slightly weak. She denies any chest pain, shortness breath, nausea, vomiting Vital signs reviewed General: nontoxic, no distress, appears at stated age Cardiovascular: S1S2 reg, no murmur, positive posterior tibial pulse bilateral, Lungs: CTA bilateral, no rhonchi, no rales , no accessory muscle use Abdominal: soft, nontender to palpation, no guarding, no appreciable organomegaly Ext: no gross muscle atrophy, Trace edema b/l lower extremities, no contractures Neuro: CN II-XI grossly intact, no focal neuro deficits Psych: Alert, oriented, appropriate affect Assessment/Plan: Paroxysmal Atrial fibrillation with rapid ventricular response Recurrent falls with weakness Moderate aortic stenosis Retention Dyslipidemia Newly discovered prediabetes Acute diastolic congestive heart failure with ejection fraction 55-60% -Cardiology note reviewed: Continue with Eliquis 2.5 mg daily and change metoprolol to 50 mg twice daily, initiated Lasix 40 mg every 12 hours. -Eliquis 2.5 mg twice daily, aspirin 81 mg daily, Lipitor 40 mg daily, Lasix 40 mg IV every 12 hours, metoprolol 50 mg twice daily -OT evaluation: Anticipate return home with family and home health care, could potentially stay was on during recovery. -Await PT evaluation - Monitor for toxicity from Lasix with daily basic metabolic profile. Memory impairment History of CVA Imaging: Carotid Doppler-less than 50% stenosis bilateral Echocardiogram-ejection fraction 55-60%, moderate aortic stenosis Data Review: Labs reviewed from today include CBC and basic met about profile which are remarkable for sodium 134, BUN 23, hemoglobin A1c 6.5 DVT prophylaxis: Eliquis Anticipated discharge date: in AM Anticipated discharge place: Home health This dictation was prepared using [employer] voice recognition software. Though every attempt is made to correct errors during dictation some may still exist. Objective - Vital Signs Vital signs: Vital Signs Temp 98 F 10/17/23 08:00 Pulse 93 10/17/23 12:00 Resp 16 10/17/23 12:00 BP 109/59 10/17/23 12:00 Pulse Ox 95 10/17/23 12:00 FiO2 Intake & Output 10/16/23 10/17/23 10/17/23 18:59 06:59 18:59 Intake Total 118 Balance 118 Weight 59.874 kg Intake: Oral 118 Other: Voiding Method Toilet Toilet # Voids 1 1 # Bowel Movements 1 1 - Labs CBC & Chem 7: 10/16/23 09:13 10/16/23 09:13 Labs: Abnormal Lab Results - Last 24 Hours (Table) 10/17/23 Range/Units 09:13 Hemoglobin A1c 6.5 H (<=6.0) %
[2023-10-17] MEDS: ATORVASTATIN 40 MG TAB PO SCH (20:26)
[2023-10-18 04:41] VITALS: RESP 16; TEMP 98.3
[2023-10-18] MEDS: FERROUS SULFATE 325 MG TAB PO SCH (08:10)
[2023-10-18] MEDS: ASPIRIN 81 MG PO SCH (08:10)
[2023-10-18] MEDS: APIXABAN 2.5 MG TABLET PO SCH (08:10)
[2023-10-18 09:12] LABS: African American GFR (CKD) >90 (>60 ml/min/1.73 sqM); Anion Gap 13 mmol/L; Blood Urea Nitrogen 23 mg/dL (7-17); Calcium 8.6 mg/dL (8.4-10.2); Carbon Dioxide 25 mmol/L (22-30); Chloride 96 mmol/L (98-107); Glucose 129 mg/dL (74-99); Non-African American GFR(CKD) 79 (>60 ml/min/1.73 sqM); Potassium 3.6 mmol/L (3.5-5.1); Sodium 134 mmol/L (137-145)
--- NOTE | 2023-10-18 09:20 | P.PN ---
Subjective HISTORY OF PRESENT ILLNESS: October 16 2023 88-year-old female with history of atrial fibrillation on Eliquis, lives alone, hypertension, history of stroke. Patient was brought to the hospital by son wasn't concerns of increased fall and slurred speech. On admission. She was found to be negative ablation with rapid ventricular response. She was started on IV Cardizem drip On admission her ECG showed atrial fibrillation with heart rate of 107. Hemoglobin 12.3, INR 1.2, sodium 134, potassium 3.4, creatinine 0.7, lactate 3.6 Her troponin was negative, BNP was 1500 Chest x-ray did not show significant pulmonary congestion October 17 2023 patient examined this morning at the bedside. Patient's mentation has improved compared to yesterday. Patient currently denies chest pain or pressure. She reports mild shortness of breath. Telemetry reveals atrial fibrillation with a heart rate around 90. Echocardiogram completed revealing ejection fraction 55- 60%, moderate aortic stenosis, moderate aortic regurgitation, mild to moderate mitral regurgitation 10/18/2023 Patient examined this morning. She is sitting up in the chair. Patient denies chest pain or pressure. She denies shortness of breath. She remains on IV Lasix. Blood pressure this morning is low with a systolic in the 80s. Telemetry reveals atrial fibrillation with a heart rate in the 90s. PHYSICAL EXAM: VITAL SIGNS: Reviewed. GENERAL: Well-developed in no acute distress. NECK: Supple. No JVD or thyromegaly LUNGS: Respirations even and unlabored. Lungs diminished. HEART: Irregular rate and rhythm. S1 and S2 heard. EXTREMITIES: Normal range of motion. No clubbing or cyanosis. Peripheral pulses intact. Trace bilateral lower extremity edema ASSESSMENT: Generalized weakness Paroxysmal atrial fibrillation with RVR Acute heart failure with preserved ejection fraction, resolved Mild coronary artery disease Moderate aortic stenosis Moderate aortic regurgitation Hyperlipidemia PLAN: Continue oral anticoagulation with Eliquis Continue current dose of metoprolol Continue telemetry monitoring Discontinue IV Lasix Continue to monitor blood pressure Further recommendations pending patient's course Nurse practitioner note has been reviewed by physician. Signing provider agrees with the documented findings, assessment, and plan of care. Objective - Vital Signs Vital signs: Vital Signs Temp 98.3 F 10/18/23 04:00 Pulse 95 10/18/23 08:00 Resp 16 10/18/23 08:00 BP 83/51 10/18/23 08:00 Pulse Ox 95 10/18/23 08:00 FiO2 Intake & Output 10/17/23 10/18/23 10/18/23 18:59 06:59 18:59 Weight 56.8 kg Other: Voiding Method Toilet Toilet # Voids 1 1 # Bowel Movements 1 - Labs CBC & Chem 7: 10/16/23 09:13 10/18/23 07:43 Labs: Abnormal Lab Results - Last 24 Hours (Table) 10/17/23 10/18/23 Range/Units 09:13 07:43 Sodium 134 L (137-145) mmol/L Chloride 96 L (98-107) mmol/L BUN 23 H (7-17) mg/dL Glucose 129 H (74-99) mg/dL Hemoglobin A1c 6.5 H (<=6.0) %
--- NOTE | 2023-10-18 09:27 | P.PN ---
Subjective Progress Note Date: 10/17/23 Patient was seen for a follow-up. Patient's friend was present. Patient's speech is better. It is back to baseline. 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 I spoke to patient's son, who mentions that patient lives by herself. She has been using cane since June 2023 after she suffered from the fall and the porch, and hit her forehead on the cement. Objective - Vital Signs Vital signs: Vital Signs Temp 98 F 10/17/23 08:00 Pulse 97 10/17/23 16:00 Resp 16 10/17/23 16:00 BP 108/55 10/17/23 16:00 Pulse Ox 98 10/17/23 16:00 FiO2 Intake & Output 10/16/23 10/17/23 10/17/23 18:59 06:59 18:59 Intake Total 118 Balance 118 Weight 59.874 kg Intake: Oral 118 Other: Voiding Method Toilet Toilet # Voids 1 1 # Bowel Movements 1 1 - Exam Patient's examination is unchanged. Mentation normal. - Labs CBC & Chem 7: 10/16/23 09:13 10/18/23 07:43 Labs: Abnormal Lab Results - Last 24 Hours (Table) 10/17/23 Range/Units 09:13 Hemoglobin A1c 6.5 H (<=6.0) % Assessment and Plan Assessment: * Recent history of fall 10/11/2023 (3 days prior to arrival) due to slipping in the bathroom * Atrial fibrillation with rapid ventricular rate, currently on Eliquis * Slurred speech, now resolved. Uncertain cause, rule out TIA. * History of TIA in August 2020, with no residual deficits. * Hypertension * Hyperlipidemia * Diabetes, newly diagnosed. Hemoglobin A1c 6.5. * Legal blindness due to macular degeneration * Peripheral neuropathy Plan: * Patient was brought to the hospital because of difficulty breathing and shortness of breath. Suspect from cardiopulmonary condition. Cardiology on board. * Patient's son believes that she has slight slurred speech, but no other focal deficits. Her examination is nonfocal. CT head showed no new process now CVA, no bleed. * 2-D echo revealed normal left ventricular wall thickness with no obvious regional wall motion abnormalities. LVEF 55-60%. Mild pulmonary hypertension. Severe left atrial dilation. Moderate right atrial dilation. Moderate aortic stenosis, mild to moderate MR. * Carotid Doppler revealed less than 50% stenosis of bilateral carotid bifurcations. Irregular spectral arterial waveforms, correlate for arrhythmia. Antegrade flow in both vertebral arteries. * Await Fasting a.m. lipid panel. Continue Lipitor 40 mg daily. * Hemoglobin A1c 6.5. Recommend healthy lifestyles, dietary adjustment, follow A1c in 3-6 months. * Await B12, folate * Optimize control of blood pressure * Continue Eliquis, dozing as per IM/cardiology. It appears her dose has been changed from 5 mg twice a day to 2.5 mg twice a day and also started on aspirin 81 mg. * Neuro checks. * Telemetry monitoring rule out any arrhythmia * PT, OT, speech therapy * DVT prophylaxis: On Eliquis * Neurologically clear for discharge. Further management as per IM and cardiology. Addendum 10/22/2023: B12 514, folate > 20, Lipid panel with cholesterol 117, LDL 57, HDL 32, triglycerides 138.
[2023-10-18 09:33] LABS: Chol/HDL Ratio 3.62 Ratio; LDL Cholesterol,Calculated 57.1 mg/dL (0.0-131.0)
[2023-10-18] MEDS: METOPROLOL SUCCINATE (ER) 50 MG TAB.ER.24H PO SCH (12:16)
[2023-10-18 12:17] VITALS: BP 112/69; PULSE 94
--- NOTE | 2023-10-18 16:58 | P.DS ---
Providers Date of admission: 10/15/23 19:29 Expected date of discharge: 10/18/23 Attending physician: Jero Troncoso MD Consults: 10/15/23 19:24 Consult Physician Routine Consulting Provider: Katya Yan Consult Reason/Comments: TIA Do you want consulting provider notified?: Yes Consult Physician Routine Consulting Provider: Jaciel Jones Consult Reason/Comments: [id number] Do you want consulting provider notified?: Yes [facility]: Discharge Diagnosis: Paroxysmal Atrial fibrillation with rapid ventricular response Recurrent falls with weakness Moderate aortic stenosis Hypertension Dyslipidemia Newly discovered prediabetes 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 fib anticoagulated with Eliquis, CVA with memory deficits, and macular degeneration who presented to the ER due to recurrent falls at home and weakness. In the emergency department she underwent an extensive evaluation. Initial laboratory analysis was remarkable for sodium 134, potassium 3.4, lactic acid 3.6. EKG demonstrated atrial fibrillation with rapid ventricular rate of 107. CT head and cervical spine was negative for any acute intracranial process but did show generalized atrophy as well as moderate multilevel degenerative disc changes. Patient was subsequently admitted. Cardiology and neurology were consulted. Neurology recommended a.m. fasting lipid profile checking hemoglobin A1c, B12, folate. Cardiology recommended Cardizem drip as well as metoprolol. Her drip was discontinued and she had good heart rate control with metoprolol. Her volume status was optimized with a small amount of IV Lasix. She was doing better. Vitamin B12 and folate came back normal. She was seen by PT and OT and felt to be appropriate for discharge home with home health care. Patient felt well and was comfortable going home. We did have a discussion that she has to be extremely careful with her falls given that she is on both Eliquis and aspirin. Patient is aware and will be staying with her son for the next several days. Follow-up: Metoprolol was changed to 25 mg twice daily, Eliquis dose was decreased to 2.5 mg twice daily. She'll follow up with Dr. Jones on 11/06/23 and her primary care physician in one to 2 days. Patient seen and examined at bedside. Doing well. No headache, lightheadedness, dizziness. Vital signs reviewed and stable. General: nontoxic, no distress, appears at stated age Derm: multiple areas of bruising including forehead Cardiovascular: S1S2 reg, no murmur, positive posterior tibial pulse bilateral, Lungs: CTA bilateral, no rhonchi, no rales , no accessory muscle use Abdominal: soft, nontender to palpation, no guarding, no appreciable organomega ly Ext: no gross muscle atrophy, no edema b/l lower extremities, no contractures Neuro: CN II-XI grossly intact, no focal neuro deficits Psych: Alert, oriented, appropriate affect A total of 37 minutes of time were spent preparing this complex discharge summary. Patient was discharged on 10/18/23. This dictation was prepared using [employer] voice recognition software. Though every attempt is made to correct errors during dictation some may still exist. Patient Condition at Discharge: Stable Plan - Discharge Summary Discharge Rx Participant: No New Discharge Prescriptions: New Metoprolol Succinate (ER) [Toprol XL] 50 mg PO BID #60 tab Aspirin 81 mg PO DAILY #30 tab Apixaban [Eliquis] 2.5 mg PO BID #60 tab Continue Atorvastatin [Lipitor] 40 mg PO HS Multivitamins, Thera [Multivitamin (formulary)] 1 tab PO BID Cholecalciferol [Vitamin D3 (25 Mcg = 1000 Iu)] 50 mcg PO BID Vit C/E/Zn/Coppr/Lutein/Zeaxan [Preservision Areds 2 Softgel] 1 cap PO BID Ferrous Sulfate [Iron] 325 mg PO DAILY Discontinued Metoprolol Succinate [Metoprolol Succinate ER] 25 mg PO HS Metoprolol Succinate [Metoprolol Succinate ER] 50 mg PO DAILY Apixaban [Eliquis] 5 mg PO BID Discharge Medication List Atorvastatin [Lipitor] 40 mg PO HS 09/13/23 [History] Ferrous Sulfate [Iron] 325 mg PO DAILY 09/13/23 [History] Cholecalciferol [Vitamin D3 (25 Mcg = 1000 Iu)] 50 mcg PO BID 10/15/23 [History] Multivitamins, Thera [Multivitamin (formulary)] 1 tab PO BID 10/15/23 [History] Vit C/E/Zn/Coppr/Lutein/Zeaxan [Preservision Areds 2 Softgel] 1 cap PO BID 10/15/23 [History] Apixaban [Eliquis] 2.5 mg PO BID #60 tab 10/18/23 [Rx] Aspirin 81 mg PO DAILY #30 tab 10/18/23 [Rx] Metoprolol Succinate (ER) [Toprol XL] 50 mg PO BID #60 tab 10/18/23 [Rx] Follow up Appointment(s)/Referral(s): Sudeep Savage MD [REFERRING] - 1-2 days Jaciel Jones MD [STAFF PHYSICIAN] - 11/06/23 1:15 pm ([facility] ) Patient Instructions/Handouts: Transient Ischemic Attack (DC) Activity/Diet/Wound Care/Special Instructions: Activity: As tolerated Diet: Heart healthy Special Instructions: Please have some one around you for the next few days. Discharge Disposition: HOME WITH HOME HEALTH SERVICES
== END 2023-10-18 13:10 | disposition home health service (06) | DRG 291 ==
LOC: EC 17:00 → 3SCARD 19:29
PROVIDERS: ADMIT Internal Medicine; ATTEND Internal Medicine
DX: I11.0 Hypertensive heart disease with heart failure (principal); G93.41 Metabolic encephalopathy; I50.31 Acute diastolic (congestive) heart failure; E87.20 Acidosis, unspecified; G45.9 Transient cerebral ischemic attack, unspecified; E87.1 Hypo-osmolality and hyponatremia; I48.20 Chronic atrial fibrillation, unspecified; E87.8 Other disorders of electrolyte and fluid balance, not elsewhere classified; I08.0 Rheumatic disorders of both mitral and aortic valves; G62.9 Polyneuropathy, unspecified; Z66 Do not resuscitate; E78.5 Hyperlipidemia, unspecified; H35.30 Unspecified macular degeneration; I69.311 Memory deficit following cerebral infarction; E87.6 Hypokalemia; M50.30 Other cervical disc degeneration, unspecified cervical region; S00.83XA Contusion of other part of head, initial encounter; H54.8 Legal blindness, as defined in USA; I25.10 Atherosclerotic heart disease of native coronary artery without angina pectoris; R73.03 Prediabetes; R29.6 Repeated falls; R09.02 Hypoxemia; W18.2XXA Fall in (into) shower or empty bathtub, initial encounter; Y93.E1 Activity, personal bathing and showering; Z79.01 Long term (current) use of anticoagulants; Z91.81 History of falling; Z87.81 Personal history of (healed) traumatic fracture; Y92.009 Unspecified place in unspecified non-institutional (private) residence as the place of occurrence of the external cause; Z79.82 Long term (current) use of aspirin; Z79.899 Other long term (current) drug therapy
CPT/HCPCS: 36415; 70450; 71045; 72125; 80048; 80053; 80061; 82607; 82746; 83036; 83605; 83735; 83880; 84100; 84484; 85025; 85610; 85730; 93005; 93306; 93880; 94760; 96361; 96365; 96366; 99285